=== PATIENT | male | born 1995 | race Caucasian/White ===

== ENCOUNTER 2020-01-03 21:16 | Emergency (ER) | payer SELFPAY ==
[~2020-01-03] VITALS: Ht 182.9 cm; Wt 68.4 kg
--- NOTE | 2020-01-03 22:41 | NUR ---
FLUTTERING FEELING IN HIS CHEST, INCREASES WHEN EATING AND BREATHING. VERSUS ESOPHAGEAL PAIN RADIATING TO SPINE. HEAD AND EAR PRESSURE. DENIES COUGH, COLD, NASAL CONGESTION.X 4 DAYS. WAS AT [facility] YESTERDAY FOR SAME. RX ZANTAC AND GI COCKTAIL. ETOH AND MARIJUANA THIS EVENING. PT'S AOX4. RESPS EVEN AND UNLABORED. BP/SPO2 MONITORS IN PLACE. CALL LIGHT WITHIN REACH. EDMD AT BEDSIDE TO EVALUATE AT THIS TIME.
[2020-01-03] MEDS ORDERED: LORazepam 1MG TABLET ONE (22:55)
[2020-01-03] MEDS ORDERED: ZIPRASIDONE 20 MG INJ IM ONE ×2 (22:55→23:00)
[2020-01-03 22:59] LABS: BASOPHILS # (AUTO) 0.02 x10^3/uL (0-0.1); BASOPHILS % (AUTO) 0 % (0-1); EOSINOPHILS # (AUTO) 0.01 x10^3/uL (0-0.4); EOSINOPHILS % (AUTO) 0 % (1-7); LYMPHOCYTES # (AUTO) 1.13 x10^3/uL (1-3.4); LYMPHOCYTES % (AUTO) 13 % (22-44); MD NO; MEAN CORPUSCULAR HEMOGLOBIN 32.6 pg (27.5-34.5); MEAN CORPUSCULAR HGB CONC 33.9 g/dL (33.2-36.2); MEAN CORPUSCULAR VOLUME 96.1 fL (81-97); MEAN PLATELET VOLUME 8.7 fL (7.4-10.4); MONOCYTES # (AUTO) 0.43 x10^3/uL (0.2-0.8); MONOCYTES % (AUTO) 5 % (2-9); NEUTROPHILS # (AUTO) 7.34 x10^3/uL (1.8-6.8); NEUTROPHILS % (AUTO) 82 % (42-75); PLATELET COUNT 252 x10^3/uL (130-400); RED BLOOD COUNT 4.15 x10^6/uL (4.38-5.82); RED CELL DISTRIBUTION WIDTH 13.3 % (9.4-14.8)
[2020-01-03] MEDS ORDERED: LORazepam 1MG TABLET PO ONE (23:00)
--- NOTE | 2020-01-03 23:03 | NUR ---
PT MEDICATED PER EMAR. PT TOLERATED WELL.
[2020-01-03 23:12] LABS: ALANINE AMINOTRANSFERASE 25 U/L (12-78); ALBUMIN 3.9 g/dL (3.4-5.0); ANION GAP 7 mmol/L (5-15); CALCIUM 8.8 mg/dL (8.5-10.1); CHLORIDE 109 mmol/L (98-107); CREATININE 1.05 mg/dL (0.7-1.3); SALICYLATE LEVEL 2.8 mg/dL (2.8-20.0)
[2020-01-03 23:14] LABS: ALKALINE PHOSPHATASE 77 U/L (45-117); BILIRUBIN,TOTAL 0.2 mg/dL (0.2-1.0); TOTAL PROTEIN 6.9 g/dL (6.4-8.2)
--- NOTE | 2020-01-03 23:49 | NUR ---
pt resting in [facility]. pt's aox4. resps even and unlabored. call light within reach. rails up x 2.
[2020-01-04 00:08] LABS: AMPHETAMINE SCREEN, URINE Positive (Negative); BARBITURATE SCREEN, URINE Negative (Negative); BENZODIAZEPINE SCREEN, URINE Negative (Negative); CANNABINOID SCREEN, URINE Positive (Negative); COCAINE SCREEN, URINE Negative (Negative); METHADONE SCREEN, URINE Negative (Negative); OPIATE SCREEN, URINE Negative (Negative)
[2020-01-04 00:38] VITALS: BP 134/74
--- NOTE | 2020-01-04 00:39 | NUR ---
pt resting in [facility]. pt's aox4. resps even and unlabored. call light within reach. rails up x 2.
--- NOTE | 2020-01-04 00:54 | NUR ---
report given to corie turner.
--- NOTE | 2020-01-04 01:32 | NUR ---
REPORT OF PT FROM LIZZY OCHOA. ALL QUESTIONS ANSWERED. PT HESITANT TO LEAVE BECAUSE "HE THINKS THERE IS SOMETHING WRONG WITH HIM". PT EDUCATED ABOUT METHAMPHETAMINE ABUSE AND VERBALIZES UNDERSTANDING.
--- NOTE | 2020-01-04 02:27 | NUR ---
PT D/C WITH D/C SUMMARY. ALL QUESTIONS ANSWERED. PT AMBULATES TO REGISTRATION DESK WITH STEADY GAIT FOR D/C HOME. PT MOTHER PICKING PT UP. PT DENIES ANY OTHER NEEDS PERTAINING TO THIS VISIT.
== END 2020-01-04 02:31 | disposition home or self-care (01) ==
LOC: ED 22:51
DX: F15.150 Other stimulant abuse with stimulant-induced psychotic disorder with delusions (principal); F15.122 Other stimulant abuse with intoxication with perceptual disturbance; F15.151 Other stimulant abuse with stimulant-induced psychotic disorder with hallucinations; F41.9 Anxiety disorder, unspecified; R00.0 Tachycardia, unspecified
CPT/HCPCS: 36415; 80053; 80307; 85025; 93005; 96372; 99284; J3486